=== PATIENT | female | born 1960 | race African-American/Black ===

== ENCOUNTER 2017-05-23 05:29 | Emergency (ER) | payer BC, OTHER ==
[~2017-05-23] VITALS: Ht 172.7 cm; Wt 125.0 kg
[~2017-05-23 05:29] MED LIST: BACT800T5 PO; ESOM1CAP6 PO
[2017-05-23 05:35] VITALS: BP 182/82; PULSE 87; RESP 16; TEMP 98.1; O2SAT 98
--- NOTE | 2017-05-23 05:42 | PD ---
HPI Chief Complaint: Hip Injury Time Seen by Provider: 05:40 Travel History International Travel<30 days: No Contact w/Intl Traveler<30days: No Traveled to known affect area: No History of Present Illness HPI Patient comes in complaining of about 2-3 day history of right buttock area pain that appears to be radiating down her right leg, the posterior part of her leg. The patient states that it feels worse when she is sitting down in a chair , feels slightly better when she is standing or laying on her stomach. However she continues to feel this tingly sensation as well as burning sensation down her right leg. Patient denies any urinary or fecal incontinence. Patient denies any weakness lateralizing to either side of her body. Denies any other difficulty walking. Patient denies any associated factors such as fever, rash, headache, chest pain, luminal pain, back pain, nausea, vomiting, diarrhea, cough , runny nosE. Drug allergy Past medical history significant for GERD, anemia, right leg surgery, history of smoking cigarettes PFSH Past Medical History Anemia: Yes GERD: Yes ?: Not Social History Alcohol Use: Yes (SOCIALLY) Tobacco Use: Yes (1PPD) Substance Use: No Allergies-Medications (Allergen,Severity, Reaction): Coded Allergies: No Known Allergies (Unverified Adverse Reaction, Unknown, 05/23/17) Reported Meds & Prescriptions Reported Meds & Active Scripts Active Bactrim DS (Sulfamethoxazole-Trimethoprim DS) 1 Tab Tab 1 Tab PO BID Reported Nexium 24Hr (Esomeprazole Magnesium) 20 Mg Cap 20 Mg PO DAILY Review of Systems General / Constitutional: No: Fever Eyes: No: Visual changes HENT: No: Headaches Cardiovascular: No: Chest Pain or Discomfort Respiratory: No: Shortness of Breath Gastrointestinal: No: Abdominal Pain Genitourinary: No: Dysuria Musculoskeletal: Positive: Pain (Right buttock pain) Skin: No Rash Neurologic: No: Weakness Psychiatric: No: Depression Endocrine: No: Polydipsia Hematologic/Lymphatic: No: Easy Bruising Physical Exam Narrative GENERAL: SKIN: Warm and dry. HEAD: Atraumatic. Normocephalic. EYES: Pupils equal and round. No scleral icterus. No injection or drainage. ENT: No nasal bleeding or discharge. Mucous membranes pink and moist. NECK: Trachea midline. No JVD. CARDIOVASCULAR: Regular rate and rhythm. RESPIRATORY: No accessory muscle use. Clear to auscultation. Breath sounds equal bilaterally. GASTROINTESTINAL: Abdomen soft, non-tender, nondistended. MUSCULOSKELETAL: Extremities without clubbing, cyanosis, or edema. No obvious deformities. Patient had positive contralateral straight leg raise, as well as unilateral leg raise. The patient dorsalis and popliteal pulses are bilaterally strong and equal. NEUROLOGICAL: Awake and alert. No obvious cranial nerve deficits. Motor grossly within normal limits. Five out of 5 muscle strength in the arms and legs. Normal speech. PSYCHIATRIC: Appropriate mood and affect; insight and judgment normal. Data Data Last Documented VS Vital Signs Date Time Temp Pulse Resp B/P (MAP) Pulse Ox O2 Delivery O2 Flow Rate FiO2 05/23/17 05:35 98.1 87 16 182/82 (115) 98 Room Air MDM Medical Decision Making Medical Screen Exam Complete: Yes Emergency Medical Condition: Yes Medical Record Reviewed: Yes Differential Diagnosis Right hip pain versus sciatica versus gluteal contusion/strain versus conus versus pinched nerve Narrative Course Clinically the findings are consistent with neuropathic pain along the sciatic nerve distribution On the right side Diagnosis Primary Impression: Sciatica Qualified Codes: M54.31 - Sciatica, right side Patient Instructions: General Instructions, Sciatica (ED) Scripts Tramadol (Ultram) 50 Mg Tab 50 MG PO Q8H Y for PAIN, #14 TAB 0 Refills Prov: Jamil Byrd MD 05/23/17 Baclofen (Baclofen) 20 Mg Tab 20 MG PO TID for Muscle Spasm for 5 Days, #15 TAB 0 Refills Prov: Jamil Byrd MD 05/23/17 Disposition: 01 DISCHARGE HOME Condition: Stable Jamil Byrd MD May 23, 2017 05:42
[2017-05-23] MEDS ORDERED: BACL20TA PO (05:55)
[2017-05-23] MEDS ORDERED: TRAM50 PO (05:55)
[2017-05-23] MEDS ORDERED: ORPHENADRINE INJ 60 MG/2 ML AMP IM ONE (06:00)
[2017-05-23] MEDS ORDERED: KETOROLAC TROMETHAMINE 60 MG/2 ML (IM) VIAL IM ONE (06:00)
== END 2017-05-23 06:43 | disposition home or self-care (01) ==
LOC: NEPE 05:29
DX: M54.31 Sciatica, right side (principal); K21.9 Gastro-esophageal reflux disease without esophagitis; F17.210 Nicotine dependence, cigarettes, uncomplicated; Z79.899 Other long term (current) drug therapy
CPT/HCPCS: 96372; 99283; J1885; J2360